=== PATIENT | male | born 1965 | race Caucasian/White ===

== ENCOUNTER 2022-08-18 08:00 | Outpatient (CLI) | payer OTHER | END 2022-08-18 23:59 | disposition home or self-care (01) | LOC: LAB.N 08:00 | PROVIDERS: ATTEND Physician Assistant Medical | DX: J34.0 Abscess, furuncle and carbuncle of nose (principal) | CPT/HCPCS: 87070; 87181; 87205 ==

== ENCOUNTER 2023-03-17 10:45 | Outpatient (CLI) | payer OTHER ==
--- NOTE | 2023-03-17 12:16 | XRAY Report ---
PROCEDURE: Chest 2V INDICATIONS: UNSPECIFIED COUGH TECHNIQUE: 2 views of the chest were acquired. COMPARISON: None. FINDINGS: Surgical changes and devices: None. Lungs and pleura: No pleural effusions or pneumothorax. Lungs are clear. Mediastinum: Mediastinal contours appear normal. Heart size is normal. Bones and chest wall: No suspicious bony lesions. Overlying soft tissues appear unremarkable. IMPRESSION: No acute cardiopulmonary process. Reviewed by: Chevy Liang MD on 03/17/2023 12:14 PM PST Approved by: Chevy Liang MD on 03/17/2023 12:14 PM [facility] Station ID: [id number]
== END 2023-03-17 11:00 | disposition home or self-care (01) ==
LOC: DI.N 10:45
PROVIDERS: ATTEND Nurse Practitioner
DX: J18.9 Pneumonia, unspecified organism (principal)
CPT/HCPCS: 36415; 80053; 85025

== ENCOUNTER 2023-03-17 11:00 | Outpatient (CLI) | payer OTHER ==
[2023-03-17 17:53] LABS: ALBUMIN 4.6 g/dL (3.2-5.5); ALBUMIN/GLOBULIN RATIO 1.8 (1.0-2.2); BILIRUBIN,TOTAL 0.9 mg/dL (0.2-1.0); CALCIUM 9.6 mg/dL (8.5-10.3); CREATININE 1.2 mg/dL (0.6-1.3); POTASSIUM 4.1 mmol/L (3.5-4.5); TOTAL PROTEIN 7.1 g/dL (6.4-8.9)
[2023-03-17 18:19] LABS: BASOPHILS % (AUTO) 0.5 %; EOSINOPHILS # (AUTO) 0.2 10^3/uL (0.0-0.7); EOSINOPHILS % (AUTO) 2.8 %; HCT - HEMATOCRIT 45.7 % (42.0-52.0); HGB - HEMOGLOBIN 15.4 g/dL (14.0-18.0); LYMPHOCYTES # (AUTO) 1.3 10^3/uL (1.5-3.5); LYMPHOCYTES % (AUTO) 21.1 %; MEAN CORPUSCULAR HEMOGLOBIN 30.2 pg (27.0-31.0); MEAN CORPUSCULAR HGB CONC 33.7 g/dL (32.0-36.0); MEAN CORPUSCULAR VOLUME 89.6 fL (80.0-94.0); MEAN PLATELET VOLUME 8.4 fL (7.4-11.4); MONOCYTES # (AUTO) 0.6 10^3/uL (0.0-1.0); MONOCYTES % (AUTO) 9.3 %; PLT - PLATELET COUNT 220 10^3/uL (130-450); RED CELL DISTRIBUTION WIDTH 13.2 % (12.0-15.0); WHITE BLOOD COUNT 6.1 x10^3/uL (4.8-10.8)
== END 2023-03-17 11:15 | disposition home or self-care (01) ==
LOC: LAB.N 11:00
PROVIDERS: ATTEND Nurse Practitioner
DX: J18.9 Pneumonia, unspecified organism (principal)
CPT/HCPCS: 36415; 80053; 85025

== ENCOUNTER 2023-04-02 08:18 | Outpatient (CLI) | payer OTHER ==
[2023-04-02 12:42] LABS: ESTIMATED AVERAGE GLUCOSE 100 mg/dL (70-100); HEMOGLOBIN A1c% 5.1 % (4.27-6.07)
[2023-04-02 12:48] LABS: BUN - BLOOD UREA NITROGEN 23 mg/dL (6-20); CALCIUM 9.5 mg/dL (8.5-10.3); CARBON DIOXIDE - CO2 31 mmol/L (21-32); CHLORIDE 107 mmol/L (101-111); CHOL/HDL RATIO 6.1 (<5.0); CHOLESTEROL 219 mg/dL; CREATININE 1.2 mg/dL (0.6-1.3); GFR - MDRD 63 (>89); GLUCOSE 111 mg/dL (74-104); HDL CHOLESTEROL 36 mg/dL; LDL CHOLESTEROL,CALCULATED 150 mg/dL; LDL/HDL RATIO 4.2 (<3.6); POTASSIUM 4.1 mmol/L (3.5-4.5); SODIUM 142 mmol/L (135-145); TRIGLYCERIDES 165 mg/dL (48-352); VLDL CHOLESTEROL 33 mg/dL
[2023-04-02 12:49] LABS: THYROID STIMULATING HORMONE 2.53 uIU/mL (0.34-5.60)
== END 2023-04-02 08:19 | disposition home or self-care (01) ==
LOC: LAB.N 08:18
PROVIDERS: ATTEND Family Medicine
DX: E78.5 Hyperlipidemia, unspecified (principal); R07.89 Other chest pain; Z13.6 Encounter for screening for cardiovascular disorders; Z12.5 Encounter for screening for malignant neoplasm of prostate
CPT/HCPCS: 36415; 80048; 80061; 83036; 83721; 84153; 84443

== ENCOUNTER 2023-08-11 07:41 | Outpatient (CLI) | payer OTHER ==
--- NOTE | 2023-08-11 07:42 | CARDIAC PROCEDURE NOTE ---
Stress Test Report Service Date: 08/11/23 Service Time: 08:00 Ordering Provider: Jerrica Casiano MD Indication for Test: Assess chest discomfort. Significant Medical History: "Wilbert" is referred for a treadmill stress echocardiogram today, to evaluate intermittent chest tightness that has been occurring off and on for the past couple of years. He reports the unpredictable onset of a feeling of chest tightness, "like heartburn", in his mid sternal area that does not radiate and is not associated with diaphoresis, though sometimes makes him feel a bit short of breath and typically resolves spontaneously within 30 to 60 seconds. 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 He does not believe that he has had a decrement in his exertional stamina. The symptoms are not related to food/eating but, as shown below, he does have some risks for coronary heart disease. Cardiac Risk Factors: Positive for treated hyperlipidemia (following fasting lipids in 04/15 including TChol 219, LDLc 150, HDLc 36, TG 165) and family history of premature sudden in father in his 40's and an IN in his paternal grandfather during the latter's later years; negative for history of hypertension, diabetes and recent tobacco smoking (brief use and quit in the ). Type of Stress Test: ETT with Echocardiography Procedure: -Exercise Treadmill Test- After signing informed consent, the patient underwent echo imaging at rest and then performed treadmill exercise using a Syd protocol. The patient exercised for 8 minutes 49 seconds and achieved a peak heart rate of 150 (91 percent predicted maximum heart rate for age), and an estimated workload of 10.2 METS. The test was terminated due to fatigue/shortness of breath. Resting heart rate: 65 Peak heart rate: 150 Normal response to exercise. Resting BP: 123/93 Peak BP: 188/79 Elevated resting diastolic BP, with normal response to exercise. Room air oxygen saturation remained between 94-98% during exercise. Rhythm during exercise: Sinus rhythm throughout, without atrial or ventricular ectopy detected. Symptoms: He denied experiencing any chest pressure/discomfort/pain whatsoever. EKG at rest showed normal sinus rhythm with probable left atrial abnormality and slight (<0.[address] mm) [address] elevation in some leads, likely due to normal variant early repolarization. EKG at peak stress showed no ischemia by EKG criteria. In Recovery HR and BP decreased normally towards baseline levels (HR was 88, BP 146/91 at 5:00). Echo imaging, performed at rest and with stress, will be reported separately. Pantera Luna MD, was present throughout this treadmill stress study and supervised it in its entirety. Summary: 1) Exercise tolerance about average for age and sex as evidenced by CLARA of 5%. 2) Normal resting EKG. 3) Adequate level of exercise was achieved on this treadmill stress test. 4) Elevated resting diastolic BP with normal response of systolic and diastolic BPs to exercise. 5) No ischemic changes by EKG criteria were seen at peak stress. 6) Echo image interpretation reveals normal left ventricular size, wall thickness and systolic function, with appropriate hyperdynamic augmentation of all segments with exercise, indicating no evidence of prior infarct or inducible ischemia. No significant valvular abnormality or elevation of estimated pulmonary artery systolic pressure seen on screening study. See separate report for more details. Conclusions and Recommendations: 1) There was no symptom, EKG or echocardiographic evidence of inducible ischemia on this Syd protocol stress echocardiogram, with exertion to a level near average for age. 2) Since he is tolerating atorvastatin at current dose (in contrast to other statins tried previously) it would be very reasonable to reassess his response to this agent with repeat fasting lipids. We discussed that today's test results highly suggest that there is no obstructive plaque as a cause of his symptoms, though further insight to his ongoing risk might be obtained through the performance of a coronary artery calcium score/chest CT. This might help further guide the intensity of his LDLc lowering, given that a low CAC score, e.g. less than 100, would probably be adequately addressed by an achieved LDLc reduction to <100 mg/dL, whereas a higher score, especially if greater than 400 would suggest that an more aggressive lipid-lowering to a level of 50-70 mg/dL may be more favorable for his long-term outcome.
== END 2023-08-11 07:42 | disposition home or self-care (01) ==
LOC: DI 07:41
PROVIDERS: ATTEND Family Medicine
DX: R07.89 Other chest pain (principal); E78.5 Hyperlipidemia, unspecified; Z82.49 Family history of ischemic heart disease and other diseases of the circulatory system; Z87.891 Personal history of nicotine dependence
CPT/HCPCS: 93350